=== PATIENT | female | born 1965 | race Caucasian/White ===

== ENCOUNTER 2021-03-12 06:35 | Day surgery (SDC) | payer BC ==
[2021-03-12] MEDS ORDERED: Lactated Ringers 1,000 ML IV SCH (07:00)
[2021-03-12] MEDS ORDERED: fentaNYL 100 MCG/2 ML SDV ONE (07:55)
[2021-03-12] MEDS ORDERED: Propofol 200 MG/20 ML SDV ONE ×2 (07:55→09:19)
--- NOTE | 2021-03-12 10:48 | OR ---
PREOPERATIVE DIAGNOSIS: Screening colonoscopy. The patient reports she had a previous colonoscopy maybe 20 years ago that was normal. There is no family history of colon cancer. She does have a history of itching after her C- sections previously. POSTOPERATIVE DIAGNOSES: 1. 4 mm polyp at 35 cm, removed using several bites of cold forceps. 2. Mild hemorrhoids, not acutely inflamed. 3. Normal distal ileum. PROCEDURE: Colonoscopy with polypectomy x1 using cold forceps. SURGEON: Narendra Akbar M.D. ANESTHESIA: Monitored anesthesia care. BOWEL PREP: Good. DESCRIPTION OF PROCEDURE: Merced is a 55-year-old female who was brought to the endoscopy suite after discussing risks and benefits of the procedure. Informed consent was obtained for conscious sedation and colonoscopy with or without biopsy and/or polypectomy. We also discussed possibility of missed lesions. Pre-procedure exam was unremarkable. IV, oxygen, and monitors were placed. The patient was placed in the left lateral decubitus position. Sedation was administered and a digital rectal exam was performed and unremarkable. Colonoscope was passed into the rectum and slowly advanced all the way to the cecum. Cecum was viewed and photographed. Ileocecal valve was intubated and distal ileum was normal in appearance. The colonoscope was slowly withdrawn and the mucosa was closed observed in a direct circumferential manner. The ascending colon was unremarkable. The transverse colon was unremarkable. The descending colon was unremarkable. The sigmoid colon revealed 4 mm polyp at 35 cm, removed using several bites of cold forceps. Retroflexion was performed. Rectal mucosa remarkable for some mild hemorrhoids, not acutely inflamed. Scope was removed. The patient tolerated the procedure well. The patient was monitored until that baseline status. Discharge instructions were reviewed and the patient was discharged in good condition. COMPLICATIONS: None. TOTAL TIME: 18 minutes. ESTIMATED BLOOD LOSS: Less than 1 mL. RECOMMENDATIONS/FOLLOWUP: We will await results of path report to determine ideal followup interval. I would like to kindly thank Dr. Shannon Flores for this referral. DMB: 03/12/2021 09:41:31 MODL: 03/12/2021 10:23:13 /[id number]
== END 2021-03-12 12:06 | disposition home or self-care (01) ==
LOC: VM.SDS 06:35
PROVIDERS: ATTEND Family Medicine
DX: Z12.11 Encounter for screening for malignant neoplasm of colon (principal); D12.5 Benign neoplasm of sigmoid colon; K64.9 Unspecified hemorrhoids; E03.9 Hypothyroidism, unspecified; G62.9 Polyneuropathy, unspecified; E66.3 Overweight; Z88.8 Allergy status to other drugs, medicaments and biological substances; Z79.890 Hormone replacement therapy; Z98.890 Other specified postprocedural states; Z79.899 Other long term (current) drug therapy; Z68.28 Body mass index [BMI] 28.0-28.9, adult
CPT/HCPCS: 00812; J2704; J3010; J7120